=== PATIENT | female | born 1975 | race Caucasian/White ===

== ENCOUNTER 2019-08-12 18:20 | Emergency (ER) | payer OTHER ==
[2019-08-12] MEDS: Ondansetron 4 MG/2 ML SDV IVPUSH ONE (18:39)
[2019-08-12] MEDS: fentaNYL 100 MCG/2 ML SDV IVPUSH ONE ×2 (18:39→19:21)
[2019-08-12] MEDS: diphenhydrAMINE 50 MG/ML SDV IVPUSH ONE (18:40)
[2019-08-12 18:46] LABS: CHLORIDE,CL 104 mmol/L (98-107); SODIUM,NA 145 mmol/L (136-145)
--- NOTE | 2019-08-12 18:53 | EDM.PDOC ---
ED HPI GENERAL MEDICAL PROBLEM - General Chief Complaint: Headache Stated Complaint: headache, nausea, vomitting Time Seen by Provider: 08/12/19 18:39 Source of Information: Reports: Patient, Family History Limitations: Reports: No Limitations - History of Present Illness INITIAL COMMENTS - FREE TEXT/NARRATIVE: Patient presents via EMS with complaint of headache that started around 3pm today. Began gradually. Slow increased in severity. Now 10/10 in severity and has nausea/emesis. Recent brain tumor surgery at [facility] Jul 26 (benign per patient). Is worried that this is related to the recent surgery. Does have remote history of migraine headache in past but cannot really say if this is similar headache or different. Denies fevers/chills. No signs of infection, respiratory or otherwise. Has been recovering well at home. Admits to eye "pressure" but does not describe any actual visual changes. No focal numbness or weakness noted. No change in speech/behavior/LOC. 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: Reports: Acetaminophen, Other (see below) Headache Pain Score (Numeric/FACES): 10 - Related Data Allergies Allergy/AdvReac Type Severity Reaction Status Date / Time glipizide Allergy Rash Verified 08/12/19 18:30 morphine Allergy Dizziness, Verified 05/10/18 22:11 itching, nausea Home Meds: Home Meds Acetaminophen [Tylenol Extra Strength] 1,500 mg PO DAILY@1800 PRN 05/10/18 [ History] Divalproex Sodium [Divalproex Sodium ER] 1,000 mg PO DAILY 08/12/19 [History] Divalproex Sodium [Divalproex Sodium ER] 500 mg PO 08/12/19 [History] Insulin Glarg,Human.Rec.Analog [Lantus] 40 unit SUBCUT Q12H 08/12/19 [History] LORazepam [Ativan] 2 mg PO BID 08/12/19 [History] Lacosamide [Vimpat] 200 mg PO BID 08/12/19 [History] dexAMETHasone [Dexamethasone] 4 mg PO Q12H 08/12/19 [History] diphenhydrAMINE [Benadryl] 25 mg PO Q4H PRN 08/12/19 [History] levETIRAcetam [Levetiracetam] 1,500 mg PO BID 08/12/19 [History] Past Medical History HEENT History: Reports: None Respiratory History: Reports: None, Cystic Fibrosis Gastrointestinal History: Reports: None Genitourinary History: Reports: None PIT SHOVELER History: Reports: Dysfunctional Uterine Bleeding, Fibroids, Other PIT SHOVELER History: Surgical menopause as below secondary to history of uterine fibroids Musculoskeletal History: Reports: Arthritis, Back Pain, Chronic, Osteoarthritis Neurological History: Reports: Headaches, Chronic, Other (See Below) Other Neuro History: Brain cancer as below. 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 Dermatologic History: Reports: None - Infectious Disease History Infectious Disease History: Reports: Mononucleosis - Past Surgical History Head Surgeries/Procedures: Reports: Craniotomy, Other (See Below) HEENT Surgical History: Reports: Adenoidectomy, Oral Surgery, Tonsillectomy, Other (See Below) Other HEENT Surgeries/Procedures: Tonsillectomy and adenoidectomy on 05/04/18. [place] teeth extraction 2000 with additional multiple teeth extractions. Cardiovascular Surgical History: Reports: None Respiratory Surgical History: Reports: None Female Surgical History: Reports: Breast Reduction, Hysterectomy, Salpingo- Oophorectomy, Other (See Below) Other Female Surgeries/Procedures: Bilateral breast reduction in 2017. Complete hysterectomy and bilateral salpingo-oophorectomy at age 42. Endocrine Surgical History: Reports: None Neurological Surgical History: Reports: Intracranial, Other (See Below) Other Neurological Surgeries/Procedures: Cranial surgery as above. Musculoskeletal Surgical History: Reports: None Oncologic Surgical History: Reports: Other (See Below) Other Oncologic Surgeries/Procedures: brain surgery as above. Dermatological Surgical History: Reports: None - Past Imaging History Past Imaging History: Reports: Mammogram (05/26/12) Social & Family History - Tobacco Use Smoking Status *Q: Never Smoker Second Hand Smoke Exposure: No - Caffeine Use Caffeine Use: Reports: Coffee - Recreational Drug Use Recreational Drug Use: No - Living Situation & Occupation Living situation: Reports: (2013 second ), (First with 2 children from that relationship), with Family ( and 3 children) Occupation: Employed ([employer] at [employer] in [place]) ED ROS GENERAL - Review of Systems Review Of Systems: See Below Constitutional: Reports: Decreased Appetite. Denies: Fever, Chills, Weakness, Night Sweats, Diaphoresis HEENT: Denies: Dental Pain, Ear Pain, Eye Discharge, Eye Pain, Sinus Problem, Throat Pain, Throat Swelling, Vertigo, Vision Change Respiratory: Reports: No Symptoms Cardiovascular: Reports: No Symptoms GI/Abdominal: Reports: Nausea, Vomiting. Denies: Abdominal Pain, Constipation, Diarrhea, Hematemesis : Reports: No Symptoms Musculoskeletal: Reports: No Symptoms. Denies: Neck Pain Skin: Reports: Other (healing incision from craniotomy) Neurological: Reports: Headache. Denies: Confusion, Dizziness, Numbness, Paresthesia, Seizure, Syncope, Tingling, Trouble Speaking, Weakness, Change in Speech Psychiatric: Reports: No Symptoms ED EXAM, GENERAL - Physical Exam Exam: See Below Exam Limited By: No Limitations General Appearance: Alert, Moderate Distress Eye Exam: Bilateral Eye: EOMI, PERRL Ears: Normal External Exam, Hearing Grossly Normal Nose: No: Nasal Deformity, Nasal Swelling, Nasal Drainage Throat/Mouth: Normal Lips, Normal Voice, No Airway Compromise Head: Normocephalic, Other (healing craniotomy incision noted. ) Neck: Supple, Non-Tender, Full Range of Motion, Other (able to touch chin to chest) Cardiovascular: Normal Peripheral Pulses, No Murmur, Tachycardia GI/Abdominal: Soft, Non-Tender, No Distention (Female) Exam: Deferred Rectal (Female) Exam: Deferred Extremities: Normal Range of Motion, Normal Capillary Refill Neurological: Alert, Oriented, CN II-XII Intact, Normal Cognition, No Motor/ Sensory Deficits Psychiatric: Anxious Skin Exam: Warm, Dry, Normal Color Course - Vital Signs Last Recorded V/S: Last Vital Signs Temp 37.7 C 08/12/19 18:21 Pulse 112 H 08/12/19 18:21 Resp BP 145/85 H 08/12/19 18:21 Pulse Ox - Orders/Labs/Meds Labs: Laboratory Tests 08/12/19 08/12/19 08/12/19 Range/Units 18:25 18:25 18:25 WBC 9.9 (4.0-10.2) K/uL RBC 4.84 (3.77-5.09) M/uL Hgb 14.8 D (11.7-15.5) g/dL Hct 44.6 (34.0-46.0) % MCV 92.1 D (84.0-98.0) fL MCH 30.6 (28.2-33.3) pg MCHC 33.2 (31.7-36.0) g/dL RDW 15.0 H (11.2-14.1) % Plt Count 285 (150-350) K/uL Neut % (Auto) 47.2 (45.0-80.0) % Lymph % (Auto) 41.6 (10.0-50.0) % [place] % (Auto) 10.1 (2.0-14.0) % Eos % (Auto) 0.7 (0.0-5.0) % Baso % (Auto) 0.4 (0.0-2.0) % Neut # (Auto) 4.68 (1.40-7.00) K/uL Lymph # (Auto) 4.12 H (0.50-3.50) K/uL [place] # (Auto) 1.00 (0.00-1.00) K/uL Eos # (Auto) 0.07 (0.00-0.50) K/uL Baso # (Auto) 0.04 (0.00-0.20) K/uL Sodium 145 (136-145) mmol/L Potassium 3.9 (3.5-5.1) mmol/L Chloride 104 (98-107) mmol/L Carbon Dioxide 28.6 (21.0-32.0) mmol/L BUN 26 H (7-18) mg/dL Creatinine 0.68 (0.51-1.17) mg/dL Est Cr Clr Drug Dosing 99.86 mL/min Estimated GFR (MDRD) > 60 mL/min Glucose 138 H (74-106) mg/dL Lactic Acid 2.6 H (0.4-2.0) mmol/L Calcium 9.3 (8.5-10.1) mg/dL Total Bilirubin 0.3 (0.2-1.0) mg/dL AST 46 H (15-37) U/L ALT 200 H (12-78) U/L Alkaline Phosphatase 64 (46-116) IU/L Total Protein 7.4 (6.4-8.2) g/dL Albumin 3.7 (3.4-5.0) g/dL Meds: Medications Discontinued Medications Generic Name Dose Route Start Last Admin Trade Name Rajendra PRN Reason Stop Dose Admin Diphenhydramine HCl 50 mg 08/12/19 18:31 08/12/19 18:40 Benadryl IVPUSH 08/12/19 18:32 50 mg ONETIME ONE Administration Fentanyl 100 mcg 08/12/19 18:32 08/12/19 18:39 Sublimaze IVPUSH 08/12/19 18:33 100 mcg ONETIME ONE Administration Fentanyl 100 mcg 08/12/19 18:53 Sublimaze IVPUSH 08/12/19 18:54 ONETIME ONE Ondansetron HCl 4 mg 08/12/19 18:31 08/12/19 18:39 Zofran IVPUSH 08/12/19 18:32 4 mg ONETIME ONE Administration - Re-Assessments/Exams Free Text/Narrative Re-Assessment/Exam: Patient essentially brought to ER by EMS for pain medication. Patient wanted pain relief for headache but is allergic to MS which is the agent EMS rig had available for her. She did receive Fentanyl in the ER as well as Zofran and Benadryl. This provided some relief for the pain. CBC/Chem ordered. Patient and family wished to have her continue on her way to [facility] for any additional workup given the recent craniotomy/neurosurgery. Discussed patient with from [facility] ER and it was felt appropriate to go ahead and expedite patient's transfer to their facility given the recent neurosurgery and severe headache developed today. WBC normal. Lactic acid and AST/ALT elevated. IV NS ordered prior to transfer. Departure - Departure Time of Disposition: 18:52 Disposition: DC/Tfer to Acute Hospital 02 Condition: Good Clinical Impression: Status post craniotomy, Elevated lactic acid level Headache Qualifiers: Headache type: unspecified Headache chronicity pattern: acute headache Intractability: intractable Qualified Code(s): R51 - Headache - Discharge Information *PRESCRIPTION DRUG MONITORING PROGRAM REVIEWED*: Not Applicable *COPY OF PRESCRIPTION DRUG MONITORING REPORT IN PATIENT YOLANDA: Not Applicable Referrals: PCP,Unknown [Primary Care Provider] - Forms: ED Department Discharge Sepsis Event Note - Evaluation Sepsis Screening Result: No Definite Risk - Focused Exam Vital Signs: Vital Signs Temp Pulse BP 08/12/19 18:21 37.7 C 112 H 145/85 H Date Exam was Performed: 08/12/19 Time Exam was Performed: 18:58
[2019-08-12] MEDS: Sodium Chloride 0.9% 1,000 ML IV ONE (19:21)
== END 2019-08-12 19:35 ==
LOC: LL.ED 18:20
DX: R51 Headache (principal); R74.0 Nonspecific elevation of levels of transaminase and lactic acid dehydrogenase [LDH]; E66.9 Obesity, unspecified; Z79.4 Long term (current) use of insulin; Z98.890 Other specified postprocedural states; Z79.899 Other long term (current) drug therapy; Z88.5 Allergy status to narcotic agent; Z88.8 Allergy status to other drugs, medicaments and biological substances
CPT/HCPCS: 36415; 80053; 83605; 85025; 96374; 96375; 99285; J1200; J2405; J3010; J3360; J7030

== ENCOUNTER 2021-04-29 20:39 | Emergency (ER) | payer OTHER ==
[2021-04-29] MEDS ORDERED: Iopamidol 612 MG/ML 100 ML Bottle IVPUSH STA (21:14)
[2021-04-29 21:45] LABS: ANION GAP 14.4 meq/L (7-15); CHLORIDE,CL 100 mmol/L (98-107); SODIUM,NA 138 mmol/L (136-145)
[2021-04-29] MEDS ORDERED: Acetaminophen/oxyCODONE 325-5 MG Tab PO ONE (22:03)
[2021-04-29] MEDS ORDERED: Ketorolac 60 MG/2 ML SDV IM ONE (22:03)
[2021-04-29] MEDS ORDERED: cefTRIAXone 1 GM in Sodium Chloride 0.9% 100 ML IV ONE (22:16)
[2021-04-29] MEDS ORDERED: Ketorolac 15 MG/ML SDV IVPUSH ONE (22:17)
--- NOTE | 2021-04-29 22:31 | EDM.PDOC ---
ED HPI GENERAL MEDICAL PROBLEM - General Chief Complaint: Back Pain or Injury Stated Complaint: back pain Time Seen by Provider: 04/29/21 20:52 Source of Information: Reports: Patient History Limitations: Reports: No Limitations - History of Present Illness INITIAL COMMENTS - FREE TEXT/NARRATIVE: 3 day history of back pain left mid back. Nothing helped it. Patient tried stretching/topical pain relievers/OTC pain meds/Flexeril. Now notes a red sore area of skin located in the incision line from surgery performed last July. Had some chills but no specific fever. No obvious drainage from site. Back Pain Pain Score (Numeric/FACES): 10 - Related Data Allergies Allergy/AdvReac Type Severity Reaction Status Date / Time glipizide Allergy Rash Verified 04/29/21 21:25 morphine Allergy Dizziness, Verified 04/29/21 21:25 itching, nausea MRI Dye Allergy Airway Uncoded 04/29/21 22:37 Tightness Home Meds: Home Meds Acetaminophen [Tylenol Extra Strength] 1,500 mg PO DAILY@1800 PRN 05/10/18 [History] Divalproex Sodium [Divalproex Sodium ER] 1,000 mg PO BEDTIME 08/12/19 [History] Divalproex Sodium [Divalproex Sodium ER] 500 mg PO DAILY 08/12/19 [History] Insulin Glarg,Human.Rec.Analog [Lantus] 40 unit SUBCUT Q12HR 08/12/19 [History] LORazepam [Ativan] 2 mg PO BID PRN 08/12/19 [History] diphenhydrAMINE [Benadryl] 25 mg PO Q4H PRN 08/12/19 [History] levETIRAcetam [Levetiracetam] 1,500 mg PO BID 08/12/19 [History] Glimepiride 4 mg PO BID 04/29/21 [History] cephALEXin [Keflex] 500 mg PO Q6H #28 cap 04/29/21 [Rx] oxyCODONE HCl/Acetaminophen [Percocet 5-325 mg Tablet] 1 each PO ASDIRECTED PRN #15 tablet 04/29/21 [Rx] Past Medical History HEENT History: Reports: None Respiratory History: Reports: None, Cystic Fibrosis Gastrointestinal History: Reports: None Genitourinary History: Reports: None 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 Dermatologic History: Reports: None - Infectious Disease History Infectious Disease History: Reports: Mononucleosis - Past Surgical History Head Surgeries/Procedures: Reports: Craniotomy, Other (See Below) HEENT Surgical History: Reports: Adenoidectomy, Oral Surgery, Tonsillectomy, Other (See Below) Other HEENT Surgeries/Procedures: Tonsillectomy and adenoidectomy on 05/04/18. [place] teeth extraction 2000 with additional multiple teeth extractions. Cardiovascular Surgical History: Reports: None Respiratory Surgical History: Reports: None Female Surgical History: Reports: Breast Reduction, Hysterectomy, Salpingo- Oophorectomy, Other (See Below) Other Female Surgeries/Procedures: Bilateral breast reduction in 2017. Complete hysterectomy and bilateral salpingo-oophorectomy at age 42. Endocrine Surgical History: Reports: None Neurological Surgical History: Reports: Intracranial, Other (See Below) Other Neurological Surgeries/Procedures: Cranial surgery as above. Musculoskeletal Surgical History: Reports: None Oncologic Surgical History: Reports: Other (See Below) Other Oncologic Surgeries/Procedures: brain surgery as above. Dermatological Surgical History: Reports: None - Past Imaging History Past Imaging History: Reports: Mammogram (05/26/12) Social & Family History - Family History Family Medical History: No Pertinent Family History - Caffeine Use Caffeine Use: Reports: Coffee - Living Situation & Occupation Living situation: Reports: (2013 second ), (First with 2 children from that relationship), with Family ( and 3 children) Occupation: Employed ([employer] at [employer] in [place]) ED ROS GENERAL - Review of Systems Review Of Systems: See Below Constitutional: Reports: Chills. Denies: Fever, Night Sweats, Diaphoresis HEENT: Reports: No Symptoms Respiratory: Reports: No Symptoms Cardiovascular: Reports: No Symptoms GI/Abdominal: Reports: No Symptoms : Reports: No Symptoms Musculoskeletal: Reports: Back Pain Skin: Reports: Erythema, Lesions Neurological: Reports: No Symptoms Psychiatric: Reports: No Symptoms Hematologic/Lymphatic: Reports: No Symptoms ED EXAM, GENERAL - Physical Exam Exam: See Below Exam Limited By: No Limitations General Appearance: Alert, Obese, Other (uncomfortable) Eye Exam: Bilateral Eye: EOMI, PERRL Ears: Normal External Exam, Normal Canal, Hearing Grossly Normal Nose: No: Nasal Deformity, Nasal Swelling, Nasal Drainage Throat/Mouth: Normal Lips, Normal Voice, No Airway Compromise Head: Atraumatic, Normocephalic Neck: Supple, Non-Tender, Full Range of Motion Respiratory/Chest: No Respiratory Distress, Lungs Clear, Normal Breath Sounds, No Accessory Muscle Use, Chest Non-Tender Cardiovascular: Regular Rate, Rhythm, No Murmur GI/Abdominal: Normal Bowel Sounds, Soft, Non-Tender (Female) Exam: Deferred Rectal (Female) Exam: Deferred Back Exam: Other (long scar from previous surgery noted left back. Area of focal swelling and redness noted within the incision line. Central scab but no drainage. Tender to touch/reproduces back pain complaint. ) Extremities: Normal Inspection, Non-Tender, Normal Capillary Refill Neurological: Alert, Oriented, Normal Cognition, Normal Gait, No Motor/Sensory Deficits Psychiatric: Normal Affect, Normal Mood Skin Exam: Warm, Erythema (and swelling left back along incision scar as noted above) Course - Vital Signs Last Recorded V/S: Last Vital Signs Temp 36.8 C 04/29/21 20:45 Pulse 96 04/29/21 20:45 Resp 18 04/29/21 20:45 BP 148/91 H 04/29/21 20:45 Pulse Ox 100 04/29/21 20:45 - Orders/Labs/Meds Orders: Active Orders 24 hr Category Date Time Status Abdomen w Cont [CT] Stat Exams 04/29/21 21:12 Taken CULTURE BLOOD [BC] Stat Lab 04/29/21 21:00 Results CULTURE BLOOD [BC] Stat Lab 04/29/21 21:10 Received Blood Culture x2 Reflex Set [OM.PC] Stat Oth 04/29/21 20:52 Ordered Labs: Laboratory Tests 04/29/21 04/29/2121 Range/Units 21:10 21:10 21:10 WBC 9.8 (4.0-10.2) K/uL RBC 4.69 (3.77-5.09) M/uL Hgb 14.2 (11.7-15.5) g/dL Hct 40.0 (34.0-46.0) % MCV 85.3 (84.0-98.0) fL MCH 30.3 (28.2-33.3) pg MCHC 35.5 (31.7-36.0) g/dL RDW 13.5 (11.2-14.1) % Plt Count 225 (150-350) K/uL Neut % (Auto) 55.9 (45.0-80.0) % Lymph % (Auto) 35.2 (10.0-50.0) % [place] % (Auto) 6.7 (2.0-14.0) % Eos % (Auto) 1.7 (0.0-5.0) % Baso % (Auto) 0.5 (0.0-2.0) % Neut # (Auto) 5.49 (1.40-7.00) K/uL Lymph # (Auto) 3.46 (0.50-3.50) K/uL [place] # (Auto) 0.66 (0.00-1.00) K/uL Eos # (Auto) 0.17 (0.00-0.50) K/uL Baso # (Auto) 0.05 (0.00-0.20) K/uL Sodium 138 (136-145) mmol/L Potassium 3.7 (3.5-5.1) mmol/L Chloride 100 (98-107) mmol/L Carbon Dioxide 23.6 (21.0-32.0) mmol/L Anion Gap 14.4 (7-15) meq/L BUN 17 (7-18) mg/dL Creatinine 0.77 (0.51-1.17) mg/dL Est Cr Clr Drug Dosing TNP Estimated GFR (MDRD) > 60 mL/min Glucose 322 H (70-99) mg/dL Lactic Acid 2.7 H (0.4-2.0) mmol/L Calcium 8.5 (8.5-10.1) mg/dL Magnesium (1.8-2.4) mg/dL Total Bilirubin 0.4 (0.2-1.0) mg/dL AST 146 H (15-37) U/L ALT 260 H (12-78) U/L Alkaline Phosphatase 110 (46-116) IU/L C-Reactive Protein 1.7 H (<=0.9) mg/dL Total Protein 7.6 (6.4-8.2) g/dL Albumin 3.7 (3.4-5.0) g/dL 04/29/21 Range/Units 21:10 WBC (4.0-10.2) K/uL RBC (3.77-5.09) M/uL Hgb (11.7-15.5) g/dL Hct (34.0-46.0) % MCV (84.0-98.0) fL MCH (28.2-33.3) pg MCHC (31.7-36.0) g/dL RDW (11.2-14.1) % Plt Count (150-350) K/uL Neut % (Auto) (45.0-80.0) % Lymph % (Auto) (10.0-50.0) % [place] % (Auto) (2.0-14.0) % Eos % (Auto) (0.0-5.0) % Baso % (Auto) (0.0-2.0) % Neut # (Auto) (1.40-7.00) K/uL Lymph # (Auto) (0.50-3.50) K/uL [place] # (Auto) (0.00-1.00) K/uL Eos # (Auto) (0.00-0.50) K/uL Baso # (Auto) (0.00-0.20) K/uL Sodium (136-145) mmol/L Potassium (3.5-5.1) mmol/L Chloride (98-107) mmol/L Carbon Dioxide (21.0-32.0) mmol/L Anion Gap (7-15) meq/L BUN (7-18) mg/dL Creatinine (0.51-1.17) mg/dL Est Cr Clr Drug Dosing Estimated GFR (MDRD) mL/min Glucose (70-99) mg/dL Lactic Acid (0.4-2.0) mmol/L Calcium (8.5-10.1) mg/dL Magnesium 1.7 L (1.8-2.4) mg/dL Total Bilirubin (0.2-1.0) mg/dL AST (15-37) U/L ALT (12-78) U/L Alkaline Phosphatase (46-116) IU/L C-Reactive Protein (<=0.9) mg/dL Total Protein (6.4-8.2) g/dL Albumin (3.4-5.0) g/dL Meds: Medications Discontinued Medications Generic Name Dose Route Start Last Admin Trade Name Freq PRN Reason Stop Dose Admin Ceftriaxone Sodium 1 gm/ 100 mls @ 200 mls/hr 04/29/21 22:16 04/29/21 22:36 Sodium Chloride IV 04/29/21 22:45 200 mls/hr ONETIME ONE Administration Iopamidol 100 ml 04/29/21 21:14 04/29/21 22:21 Iopamidol 612 Mg/Ml 100 Ml Bottle IVPUSH 04/29/21 21:15 100 ml ONETIME STA Administration Ketorolac Tromethamine 60 mg 04/29/21 22:03 04/29/21 22:21 Ketorolac 60 Mg/2 Ml Sdv IM 04/29/21 22:04 Not Given ONETIME ONE Ketorolac Tromethamine 15 mg 04/29/21 22:17 04/29/21 22:35 Ketorolac 15 Mg/Ml Sdv IVPUSH 04/29/21 22:18 15 mg ONETIME ONE Administration Oxycodone/Acetaminophen 2 tab 04/29/21 22:03 04/29/21 22:34 Acetaminophen/Oxycodone 325-5 Mg Tab PO 04/29/21 22:04 2 tab ONETIME ONE Administration - Re-Assessments/Exams Free Text/Narrative Re-Assessment/Exam: 04/29/21 22:33 Suspect cellulitis along incision line that may be related to subcutaneous suture. CT ordered to look for abscess as patient feels like "something is inside of (her) back". Rocephin ordered. Needle aspiration yielded no fluid/material for culture. Toradol and PO pain medication given to patient. Will plan to treat for cellulitis and have patient follow up with PCP unless something unusual is noted on CT. Blood glucose 322. 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 Trying to eat lower carb diet. Strongly encouraged to follow up closely with PCP and continue to work on insulin dosing/diet for best control. 04/29/21 23:15 Normal WBC. Mild elevation of AST/ALT. Also a small amount of elevation of CRP and Lactic. Rx for Keflex given in addition to small amount Percocet. She is to be cautious with pain medication as she also has PRN Ativan and the combo can cause DRAFTER REFRIGERATION depression. To follow up with Erna on for recheck. To return to ER if having worsening symptoms. 04/30/21 05:29 Radiology noted no evidence of abscess on CT report. Mild soft tissue swelling only near surface. Departure - Departure Time of Disposition: 23:08 Disposition: Home, Self-Care 01 Condition: Good Clinical Impression: Cellulitis Qualifiers: Site of cellulitis: trunk Site of cellulitis of trunk: back Qualified Code(s): L03.312 - Cellulitis of back [any part except buttock] - Discharge Information *PRESCRIPTION DRUG MONITORING PROGRAM REVIEWED*: Not Applicable *COPY OF PRESCRIPTION DRUG MONITORING REPORT IN PATIENT YOLANDA: Not Applicable Prescriptions: cephALEXin [Keflex] 500 mg PO Q6H #28 cap oxyCODONE HCl/Acetaminophen [Percocet 5-325 mg Tablet] 1 each PO ASDIRECTED PRN #15 tablet PRN Reason: Pain Instructions: Cellulitis, Adult Referrals: Erna Arellano PA [Primary Care Provider] - Forms: ED Department Discharge Additional Instructions: Follow up with Erna . Tell them you were seen in ER tonight and need this rechecked. If you have sudden severe worsening, follow up again in ER. We will call you tonight if anything significant like an abscess is noted on CT report once we receive it. Your blood sugar was 322. Keep working on your diet and keep in contact with Erna in order to adjust insulin dosing. Take Keflex one tab every 6 hours. Be careful with the pain medication as that can interact with your Ativan and cause DRAFTER REFRIGERATION depression. Do not take any extra doses and try to stick to one tablet at a time versus two. Sepsis Event Note (ED) - Evaluation Sepsis Screening Result: No Definite Risk - Focused Exam Vital Signs: Vital Signs Temp Pulse Resp BP Pulse Ox 04/29/21 20:45 36.8 C 96 18 148/91 H 100 - My Orders Last 24 Hours: My Active Orders 04/29/21 20:52 Blood Culture x2 Reflex Set [OM.PC] Stat 04/29/21 21:00 CULTURE BLOOD [BC] Stat 04/29/21 21:10 CULTURE BLOOD [BC] Stat 04/29/21 21:12 Abdomen w Cont [CT] Stat - Assessment/Plan Last 24 Hours: My Active Orders 04/29/21 20:52 Blood Culture x2 Reflex Set [OM.PC] Stat 04/29/21 21:00 CULTURE BLOOD [BC] Stat 04/29/21 21:10 CULTURE BLOOD [BC] Stat 04/29/21 21:12 Abdomen w Cont [CT] Stat
== END 2021-04-29 23:25 | disposition home or self-care (01) ==
LOC: LL.ED 20:39
DX: L03.312 Cellulitis of back [any part except buttock and flank] (principal); E66.9 Obesity, unspecified; Z68.34 Body mass index [BMI] 34.0-34.9, adult; Z88.5 Allergy status to narcotic agent; Z91.041 Radiographic dye allergy status; Z88.8 Allergy status to other drugs, medicaments and biological substances
CPT/HCPCS: 36415; 74160; 80053; 83605; 83735; 85025; 86140; 87040; 96365; 96375; 99283; 99284-25; A9270-GY; J0696; J1885; Q9967